=== PATIENT | female | born 1975 ===

== ENCOUNTER 2016-08-20 22:54 | Emergency (ER) | payer SELFPAY ==
[2016-08-20 23:01] VITALS: BP 136/87; PULSE 109; RESP 16; TEMP 98.4; O2SAT 100
--- NOTE | 2016-08-20 23:22 | ED PDOC ---
HPI: Female Pain Time Seen by Provider: 08/20/16 23:01 Chief Complaint (Nursing): Female Genitourinary Chief Complaint (Provider): Abdominal pain History Per: Patient Additional Complaint(s): Pt is a 40 yo female, no PMH, presents to ED with complaints of being ~ 4 weeks and having cramping and vaginal bleeding since earlier today. Pt Past Medical History Reviewed: Nursing Documentation, Vital Signs Vital Signs: Last Vital Signs Temp 98.4 F 08/20/16 22:58 Pulse 109 H 08/20/16 22:58 Resp 16 08/20/16 22:58 BP 136/87 08/20/16 22:58 Pulse Ox 100 08/20/16 22:58 - Medical History PMH: HTN - Surgical History Surgical History: - Family History Family History: States: Unknown Family Hx - Living Arrangements Living Arrangements: With Family - Social History Current smoker - smoking cessation education provided: No Alcohol: None Drugs: Denies - Home Medications Home Medications: Ambulatory Orders Medication Instructions Recorded Hydrochlorothiazide 12.5 mg PO DAILY #10 capsule 10/26/15 - Allergies Allergies/Adverse Reactions: Allergies Allergy/AdvReac Type Severity Reaction Status Date / Time No Known Allergies Allergy Verified 08/20/16 22:57 Review of Systems ROS Statement: Except As Marked, All Systems Reviewed And Found Negative Gastrointestinal: Positive for: Abdominal Pain Physical Exam - Reviewed Nursing Documentation Reviewed: Yes Vital Signs Reviewed: Yes - Physical Exam Appears: Positive for: Well, Non-toxic, No Acute Distress Head Exam: Positive for: ATRAUMATIC, NORMAL INSPECTION, NORMOCEPHALIC Skin: Positive for: Normal Color, Warm, DRY Eye Exam: Positive for: EOMI, Normal appearance, PERRL ENT: Positive for: Normal ENT Inspection Neck: Positive for: Normal, Painless ROM Cardiovascular/Chest: Positive for: Regular Rate, Rhythm Respiratory: Positive for: CNT, Normal Breath Sounds Gastrointestinal/Abdominal: Positive for: Bowel Sounds, Soft, Tenderness Pelvic Exam: Positive for: Active Bleeding (mild) Back: Positive for: Normal Inspection Extremity: Positive for: Normal ROM Neurologic/Psych: Positive for: Alert, Oriented - Laboratory Results Result Diagrams: 08/20/16 23:41 - ECG O2 Sat by Pulse Oximetry: 100 Medical Decision Making Medical Decision Making: Hgb/Hct WNL Beta 5130 FINDINGS: Gestation: Gestational sac. No yolk sac. No pole. Mean sac diameter of 0.76 cm, out of range. Uterus/cervix: No subchorionic hemorrhage. No cervical dilatation or effacement. Ovaries: RIGHT ovary: Normal. LEFT ovary: 1.8 x 1.9 x 1.8 cm anechoic lesion. No adnexal masses. Free fluid: No significant free fluid. IMPRESSION: 1. Intrauterine , of uncertain viability. Recommend followup. 2. LEFT ovarian cyst. 3. Incidental/non-acute findings are described above. Blood type pending, Pt asking to go home. pt advised to return to ED or follow up with OB in 2 days for repeat beta. returnt o ED sooner if at anytime pain or bleeding become severe Disposition - Clinical Impression Clinical Impression: Threatened - Patient ED Disposition Is Patient to be Admitted: No - Disposition Disposition: Routine/Home Disposition Time: 02:17 Condition: STABLE Instructions: Threatened Miscarriage (ED) Forms: [employer] (English) Print Language: COMORAN
[2016-08-20 23:46] LABS: BASO # 0.1 K/uL (0.0-0.2); BASO % 0.5 % (0.0-2.0); EOS # 0.1 K/uL (0.0-0.7); EOS % 1.1 % (0.0-4.0); HEMATOCRIT 39.1 % (34.0-47.0); LYMPH # 2.9 K/uL (1.0-4.3); LYMPH % 27.2 % (20.0-40.0); MEAN CORPUSCULAR HEMOGLOBIN 29.2 pg (27.0-31.0); MEAN CORPUSCULAR HGB CONC 33.2 g/dL (33.0-37.0); MEAN PLATELET VOLUME 9.1 fl (7.2-11.7); MONO # 0.7 K/uL (0.0-0.8); MONO % 6.7 % (0.0-10.0); NEUT # 6.8 K/uL (1.8-7.0); NEUT % 64.5 % (50.0-75.0); RED CELL DISTRIBUTION WIDTH 14.3 % (11.5-14.5); WHITE BLOOD COUNT 10.5 K/uL (4.8-10.8)
[2016-08-20 23:59] LABS: RBC URINE 4 /hpf (0-3); URINE BACTERIA OCC (<OCC); URINE BILIRUBIN NEGATIVE (NEGATIVE); URINE BLOOD LARGE (NEGATIVE); URINE COLOR STRAW (YELLOW); URINE GLUCOSE (UA) NEG (Normal); URINE KETONE NEGATIVE (NEGATIVE); URINE LEUKOCYTE ESTERASE NEG Leu/uL (Negative); URINE PROTEIN NEGATIVE (NEGATIVE); URINE UROBILINOGEN 0.2-1.0 mg/dL (0.2-1.0); WBC URINE 1 /hpf (0-5)
--- NOTE | 2016-08-21 00:45 | US ---
EXAM: US First Trimester, Transabdominal CLINICAL HISTORY: 40 years old, female; Signs and symptoms; Lmp or gestational age (in weeks): 06/30/16; Antepartum complications; Hemorrhage; Additional info: 4 weeks and bleeding and pain TECHNIQUE: Real-time transabdominal obstetrical ultrasound of the maternal pelvis and a first trimester with image documentation. COMPARISON: No relevant prior studies available. FINDINGS: Gestation: Gestational sac. No yolk sac. No pole. Mean sac diameter of 0.76 cm, out of range. Uterus/cervix: No subchorionic hemorrhage. No cervical dilatation or effacement. Ovaries: RIGHT ovary: Normal. LEFT ovary: 1.8 x 1.9 x 1.8 cm anechoic lesion. No adnexal masses. Free fluid: No significant free fluid. IMPRESSION: 1. Intrauterine , of uncertain viability. Recommend followup. 2. LEFT ovarian cyst. 3. Incidental/non-acute findings are described above.
== END 2016-08-21 01:05 | disposition home or self-care (01) ==
LOC: H.ER 22:54
DX: O20.0 Threatened abortion (principal); Z3A.01 Less than 8 weeks gestation of pregnancy; N83.202 Unspecified ovarian cyst, left side; O16.1 Unspecified maternal hypertension, first trimester